=== PATIENT | female | born 1980 | race American Indian/Alaskan Native ===

== ENCOUNTER 2019-03-28 17:02 | Outpatient (CLI) | payer MEDICAID ==
[2019-03-28] MEDS ORDERED: LACTATED RINGERS 500 ML IV ONE (17:13)
[2019-03-28 18:04] LABS: Bacteria,Urine 1+ /HPF (Negative); Bilirubin,Urine NEG (Negative); Blood,Urine NEG (Negative); Color,Urine Yellow (Yellow); Mucus,Urine FEW /HPF; Protein,Urine <15 mg/dL mg/dL (Negative); Urobilinogen,Urine < 2.0 mg/dL (<2.0)
[2019-03-28 18:44] VITALS: BP 114/65
== END 2019-03-28 19:27 | disposition home or self-care (01) ==
LOC: TRG 17:02
PROVIDERS: ATTEND Obstetrics & Gynecology
DX: O47.03 False labor before 37 completed weeks of gestation, third trimester (principal); Z3A.35 35 weeks gestation of pregnancy
CPT/HCPCS: 81001

== ENCOUNTER 2019-04-23 00:31 | Inpatient (IN) | payer MEDICAID ==
[2019-04-23] MEDS ORDERED: LACTATED RINGERS 2,000 ML ONE (02:01)
[2019-04-23] MEDS ORDERED: PITOCin/NS 20 UNIT/1000ML DRIP 20,000 MILLIUNITS/1,000 ML BAG IV ONE (02:14)
--- NOTE | 2019-04-23 02:21 | History and Physical Report ---
History of Present Illness Date of examination: 04/23/19 (Labor, 8cms) Date of admission: 04/23/19 01:46 Chief complaint: Labor History of present illness: EDC Confirmation: 04/29/2019 Past History : 5 Term Births: 4 Premature Births: 0 Living Children: 4 Para: 4 Mult. Births: 0 Prev : 0 Prev. attempt? 0 Aborta: 0 Elect. Ab: 0 Spont. Ab: 0 Ectopics: 0 # 1 Delivery date: 02/13/2014 Weeks Gestation: 39 Delivery type: Vaginal Hours of labor: 10 Anesthesia type: epidural Delivery location: [facility] Sex: male weight: 6.81 Name: Alexandr # 2 Delivery date: 03/10/2015 Weeks Gestation: 41 Delivery type: Vaginal Anesthesia type: epidural Delivery location: [facility] Sex: male weight: 8.50 Name: JOHNSON # 3 Delivery date: 09/08/2016 Weeks Gestation: 40 Delivery type: Vaginal Anesthesia type: epidural Delivery location: [facility] Sex: female weight: 7.75 Comments: GBS+ Treated # 4 Delivery date: 10/31/2017 Weeks Gestation: 40 Delivery type: Vaginal Anesthesia type: none Delivery location: [facility] Sex: male weight: 8 Comments: precipitous delivery Past Medical History: Reviewed history from 03/26/2014 and no changes required: None Past Surgical History: Reviewed history from 03/16/2017 and no changes required: negative Past Medical History Abnormal PAP: negative MICHELE Exposure: negative Infertility: negative Uterine Anomaly: negative Uterine Surgery (not C/S): negative Other Gynecologic Problems: negative Social Hx: Patient is single Unemployed Smoking History: Patient has never smoked. Infection History Hx of STD: HPV HIV Risk Eval: low risk Hepatitis B Risk Eval: low risk Personal hx. of genital herpes: no Partner hx. of genital herpes: no Rash, Viral, or Febrile illness since last LMP? no Varicella/Chicken Pox Status: Previous Disease TB Risk: no Genetic History ADVANCED MATERNAL AGE Congenital Heart Defect: Mom: no Dad: no Santy Disease: Mom: no Dad: no Thalassemia Mom: no Dad: no Neural Tube Defect Mom: no Dad: no Down's Syndrome Mom: no Dad: no Napoleon-Sachs Mom: no Dad: no Sickle Cell Disease/Trait Mom: no Dad: no Hemophilia Mom: no Dad: no Muscular Dystrophy Mom: no Dad: no Cystic Fibrosis Mom: no Dad: no [place] Chorea Mom: no Dad: no Mental Retardation Mom: no Dad: no Fragile X Mom: no Dad: no Other Genetic/Chromosomal Disorder Mom: no Dad: no Child w/other defect Mom: no Dad: no Enviromental Exposures Xray Exposure: no Medication, drug, or alcohol use since LMP: no Chemical/Other Exposure: no Exposure to Cat Liter: no Occupational Exposure to Children: none Active Medications (reviewed today): RX 1 TABS ( VIT-FE FUMARATE-FA TABS) one po q day ZOFRAN ODT 8 MG ORAL TABLET DISINTEGRATING (ONDANSETRON) 1 po q12hrs prn RX 1 TABS ( VIT-FE FUMARATE-FA TABS) one po q day Current Allergies (reviewed today): * PENICILLIN (Critical) Past History Past Medical History: other (see HPI) Past Surgical History: other (see HPI) CIRCULATION MAN History: other (see HPI) Family/Genetic History: other (see HPI) - Obstetrical History Expected Date of Delivery: 04/29/19 Actual Gestation: 39 Week(s) 1 Day(s) : 5 Para: 4 Hx # Term Pregnancies: 4 Number of Pregnancies: 0 Spontaneous Abortions: 0 Induced : 0 Number of Living Children: 4 Medications and Allergies Allergies Allergy/AdvReac Type Severity Reaction Status Date / Time Penicillins AdvReac Severe Rash Verified 03/28/19 17:12 Home Medications Medication Instructions Recorded Confirmed Last Taken Type Vits96/Iron Fum/Folic 1 each PO QDAY 08/28/13 10/31/17 1 Day Ago History [ Tablet] ~10/30/17 Ferrous Sulfate [Feosol 325 MG tab] 325 mg PO BID #90 tablet 11/01/17 Unknown Rx Ibuprofen [Motrin 800 MG tab] 800 mg PO TID PRN #30 tablet 11/01/17 Unknown Rx Lidocain2.5%/Prilocai2.5% [Emla] 5 gm TP PRN #1 tube 11/01/17 Unknown Rx Review of Systems All systems: negative - Physical Exam Breasts: Positive: normal Cardiovascular: Regular rate Lungs: Positive: Clear to auscultation, Normal air movement Abdomen: Positive: normal appearance, soft Genitourinary (Female): Positive: normal external genitalia, normal perenium Vulva: both: normal Vagina: Positive: normal moisture Uterus: Positive: normal size Anus/Rectum: Positive: normal perianal skin Extremities: Positive: normal - Obstetrical FHR: category 1 Uterine Contraction Monitor Mode: External Cervical Dilatation: 8 Uterine Contraction Pattern: Regular Uterine Tone Measurement Phase: Contraction Uterine Contraction Intensity: Strong/Firm Results All other labs normal. Assessment and Plan 38y/o @ 39+1 weeks admitted in active labor 8cms. IVF open for pre- epidural bolus, admission orders in EMR. Anticipate . GBS neg - Patient Problems (1) 39 weeks gestation of Current Visit: Yes Status: Acute (2) Active labor at term Current Visit: Yes Status: Acute
[2019-04-23] MEDS ORDERED: BRETHINE SUB-Q PRN (02:22)
[2019-04-23] MEDS ORDERED: SUBLIMAZE IV PRN (02:22)
[2019-04-23] MEDS ORDERED: MINERAL OIL PO PRN (02:22)
[2019-04-23] MEDS ORDERED: XYLOCAINE 2% INFILTRATI ONE (02:22)
[2019-04-23 02:56] LABS: Hematocrit 35.5 % (30.3-42.9); Hemoglobin 11.9 gm/dl (10.1-14.3); Mean Corpuscular HGB Conc 34 % (30-34); Mean Corpuscular Volume 89 fl (79-97); Platelet Count 158 K/mm3 (140-440); Red Cell Distribution Width 14.3 % (13.2-15.2)
[2019-04-23] MEDS ORDERED: PITOCin/NS 20 UNIT/1000ML DRIP 20 UNITS/1,000 ML BAG IV SCH ×2 (03:00→05:21)
[2019-04-23] MEDS ORDERED: LACTATED RINGERS 1,000 ML IV SCH (03:00)
[2019-04-23] MEDS ORDERED: NARCAN 2 MG/2 ML IV PRN (03:43)
--- NOTE | 2019-04-23 03:43 | Anesthesia Consultation ---
Anesthesia Consult and Med Hx Date of service: 04/23/19 - Airway Anesthetic Teeth Evaluation: Chipped ROM Head & Neck: Adequate Mental/Hyoid Distance: Adequate Mallampati Class: Class II Intubation Access Assessment: Probably Good - Pulmonary Exam CTA: Yes - Cardiac Exam Cardiac Exam: RRR - Pre-Operative Health Status ASA Pre-Surgery Classification: ASA3 Proposed Anesthetic Plan: Epidural - Pulmonary Hx Asthma: No COPD: No Hx Pneumonia: No - Cardiovascular System Hx Hypertension: No - Central Nervous System Hx Seizures: No Hx Psychiatric Problems: No - Endocrine Hx Renal Disease: No Hx End Stage Renal Disease: No Hx Hypothyroidism: No Hx Hyperthyroidism: No - Hematic Hx Anemia: No Hx Sickle Cell Disease: No - Other Systems Hx Alcohol Use: No Hx Obesity: Yes (morbid)
[2019-04-23] MEDS ORDERED: fentaNYL-BUPIV 2 MCG/ML-0.125% 200 MCG/100 ML BAG EPIDURAL SCH (04:00)
--- NOTE | 2019-04-23 04:12 | Procedure Note ---
OB Delivery Note - Delivery Date of Delivery: 04/23/19 ( female) Stitch Bonding Machine Tender: LEEANNE ZHAO Estimated blood loss: 300cc - Vaginal Delivery presentation: vertex Delivery position: OA Intrapartum events: none Delivery induction: none Delivery monitor: external FHT, external uterine Route of delivery: Delivery placenta: spontaneous Delivery cord: 3 umbilical vessels Episiotomy: none Delivery laceration: none Anesthesia: epidural Delivery comments: female delivered over intact perineum, OA. placed skin to skin on mother's chest, 3 vessel cord clamped and cut after cessation of pulsation. Placenta del intact and complete. Pit to IVF. EBL 300. Apgars 8/9. mother and infant remain LDR stable. - Infant A at 1 minute: 8 at 5 minutes: 9 Gender: Female (8#4)
[2019-04-23] MEDS ORDERED: SODIUM CHLORIDE FLUSH SYRINGE 10 ML IV PRN (05:21)
[2019-04-23] MEDS ORDERED: TUCKS PAD TP PRN (05:21)
[2019-04-23] MEDS ORDERED: DULCOLAX PR PRN (05:21)
[2019-04-23] MEDS ORDERED: ZOFRAN IV PRN (05:21)
[2019-04-23] MEDS ORDERED: TYLENOL PO PRN (05:21)
[2019-04-23] MEDS ORDERED: LANSINOH TP PRN (05:21)
[2019-04-23] MEDS ORDERED: PHENERGAN PO PRN (05:21)
[2019-04-23] MEDS ORDERED: MILK OF MAGNESIA PO PRN (05:21)
[2019-04-23] MEDS ORDERED: BENADRYL PO PRN (05:21)
[2019-04-23] MEDS: IBUPROFEN PO SCH ×3 (05:34→18:18)
[2019-04-23] MEDS: PRENATAL VITAMIN PO SCH (11:42)
[2019-04-23 15:48] LABS: Hematocrit 35.9 % (30.3-42.9); Hemoglobin 11.9 gm/dl (10.1-14.3)
[2019-04-24] MEDS: IBUPROFEN PO SCH ×4 (00:05→23:07)
[2019-04-24] MEDS ORDERED: BOOSTRIX IM ONE (06:00)
--- NOTE | 2019-04-24 08:01 | Discharge Summary ---
Providers - Providers Date of Admission: 04/23/19 01:46 Date of discharge: 04/24/19 (desires d/c home tomorrow morning) Attending physician: EMA APPLE Primary care physician: EMA APPLE Hospitalization Reason for admission: Labor Condition: Good Pertinent studies: post delivery H&H 11.9/35.9 Procedures: Hospital course: uncomplicated and course Disposition: DC-01 TO HOME OR SELFCARE - Discharge Diagnoses (1) Spontaneous vaginal delivery Status: Acute Core Measure Documentation - Palliative Care Palliative Care/ Comfort Measures: Not Applicable - Core Measures Any of the following diagnoses?: none Exam - Constitutional Vitals: Temp Pulse Resp BP Pulse Ox 97.8 F 86 16 106/63 96 04/24/19 01:14 04/24/19 01:14 04/24/19 01:14 04/24/19 01:14 04/24/19 01:14 General appearance: Present: no acute distress, well-nourished - EENT Eyes: Present: PERRL ENT: hearing intact, clear oral mucosa - Neck Neck: Present: supple, normal ROM - Respiratory Respiratory effort: normal Respiratory: bilateral: CTA - Cardiovascular Heart Sounds: Present: S1 & S2. Absent: rub, click - Extremities Extremities: pulses symmetrical, No edema Peripheral Pulses: within normal limits - Abdominal General gastrointestinal: Present: soft, non-tender, non-distended, normal bowel sounds Female genitourinary: Present: normal - Integumentary Integumentary: Present: clear, warm, dry - Musculoskeletal Musculoskeletal: gait normal, strength equal bilaterally - Psychiatric Psychiatric: appropriate mood/affect, intact judgment & insight - Neurologic Neurologic: CNII-XII intact, moves all extremities - Additional findings Additional findings: fundus firm, lochia scant Plan Activity: no restrictions Diet: regular Follow up with: EMA APPLE MD [Primary Care Provider] - 7 Days (Congratulations! Please call [phone] to schedule your visitin 4 weeks. Call for any questions or concerns.) Prescriptions: Ibuprofen [Motrin 800 MG tab] 800 mg PO Q8HR PRN #30 tablet PRN Reason: Pain
[2019-04-24] MEDS: PRENATAL VITAMIN PO SCH (11:09)
[2019-04-25] MEDS: IBUPROFEN PO SCH (05:17)
[2019-04-25] MEDS: PRENATAL VITAMIN PO SCH (09:46)
[2019-04-25 11:29] VITALS: BP 117/71
== END 2019-04-25 11:20 | disposition home or self-care (01) | DRG 775 ==
LOC: TRG 00:31 → LD 01:46 → OB 07:45
PROVIDERS: ADMIT Obstetrics & Gynecology; ATTEND Obstetrics & Gynecology
PROC: 10E0XZZ Delivery of Products of Conception, External Approach (ICD-10-PCS; principal; 2019-04-23)
PROC: 3E0R3BZ Introduction of Anesthetic Agent into Spinal Canal, Percutaneous Approach (ICD-10-PCS; 2019-04-23)
PROC: 00HU33Z Insertion of Infusion Device into Spinal Canal, Percutaneous Approach (ICD-10-PCS; 2019-04-23)
DX: O99.214 Obesity complicating childbirth (principal); E66.9 Obesity, unspecified; Z3A.39 39 weeks gestation of pregnancy; Z37.0 Single live birth; Z88.0 Allergy status to penicillin; Z79.899 Other long term (current) drug therapy
CPT/HCPCS: 36415; 85014; 85018; 85027; 86592; 86850; 86900; 86901; 90471; 90715; G0378; A6250; J2590; J3010; J7120

== ENCOUNTER 2019-05-04 15:01 | Inpatient (IN) | payer MEDICAID ==
[2019-05-04] MEDS ORDERED: MILK OF MAGNESIA PO PRN (15:02)
[2019-05-04] MEDS ORDERED: TUCKS PAD TP PRN (15:02)
[2019-05-04] MEDS ORDERED: TYLENOL PO PRN (15:02)
[2019-05-04] MEDS ORDERED: BENADRYL PO PRN (15:02)
[2019-05-04] MEDS ORDERED: LANSINOH TP PRN (15:02)
[2019-05-04] MEDS ORDERED: DULCOLAX PR PRN (15:02)
[2019-05-04] MEDS ORDERED: MAGNESIUM SULFATE 4GM/100ML 4 GM/100 ML BAG IV ONE (15:02)
--- NOTE | 2019-05-04 15:14 | History and Physical Report ---
History of Present Illness Date of examination: 05/04/19 Chief complaint: direct admit for pre-e from the office History of present illness: day 11, seen in office for c/o swelling in feet and legs along with occasional FRIEDMAN's relieved with Tylenol. b/p in office 170/100. Delivery Date: 04/23/2019 Gestational Age: 39+1 weeks Labor Length: 4 hours Anesthesia: epidural Delivery Type: Vaginal Weight: 8.25 lbs Gender: female Location: [facility] Complications: none - 1 minute: 8 5 minutes: 9 Past History Past Medical History: no pertinent history Past Surgical History: no surgical history Social history: , lives with family. denies: smoking, alcohol abuse, prescription drug abuse, IV drug use - Obstetrical History : 5 Para: 5 Medications and Allergies Allergies Allergy/AdvReac Type Severity Reaction Status Date / Time Penicillins AdvReac Severe Rash Verified 03/28/19 17:12 Home Medications Medication Instructions Recorded Confirmed Last Taken Type Vits96/Iron Fum/Folic 1 each PO QDAY 08/28/13 04/24/19 1 Day Ago History [ Tablet] ~10/30/17 Ferrous Sulfate [Feosol 325 MG tab] 325 mg PO BID #90 tablet 11/01/17 04/24/19 Unknown Rx Ibuprofen [Motrin 800 MG tab] 800 mg PO TID PRN #30 tablet 11/01/17 04/24/19 Unknown Rx Lidocain2.5%/Prilocai2.5% [Emla] 5 gm TP PRN #1 tube 11/01/17 04/24/19 Unknown Rx Ibuprofen [Motrin 800 MG tab] 800 mg PO Q8HR PRN #30 tablet 04/24/19 Unknown Rx Active Meds: Active Medications Acetaminophen (Tylenol) 650 mg PO Q4H PRN PRN Reason: Pain MILD(1-3)/Fever >100.5/FRIEDMAN Bisacodyl (Dulcolax) 10 mg MS BID PRN PRN Reason: Constipation Diphenhydramine HCl (Benadryl) 25 mg PO Q6H PRN PRN Reason: Itching Magnesium Sulfate (Magnesium Sulfate 4gm/100ml) 4 gm in 100 mls @ 300 mls/hr IV ONCE ONE Stop: 05/04/19 15:21 Magnesium Sulfate (Magnesium Sulfate 40gm/1000ml) 40 gm in 1,000 mls @ 50 mls/hr IV DIRECT NERI Lactated Ringer's (Lactated Ringers) 1,000 mls @ 125 mls/hr IV DIRECT NERI Magnesium Hydroxide (Milk Of Magnesia) 30 ml PO HS PRN PRN Reason: Constipation Multi-Ingredient Ointment (Lansinoh) 1 applic TP PRN PRN PRN Reason: Sore Nipples Multivitamins/Iron/Calcium ( Vitamin) 1 each PO QDAY NERI Sodium Chloride (Sodium Chloride Flush Syringe 10 Ml) 10 ml IV PRN NR Witch [place]/Glycerin (Tucks Pad) 1 each TP PRN PRN PRN Reason: Hemorrhoid/cleansing/soothing Review of Systems All systems: negative Cardiovascular: leg edema Neurological: headaches - Physical Exam Breasts: Positive: normal, Cardiovascular: Regular rate Lungs: Positive: Clear to auscultation, Normal air movement Abdomen: Positive: normal appearance, soft Genitourinary (Female): Positive: normal external genitalia Vulva: both: normal Extremities: Positive: edema (2+ nonpitting edema BTK) Deep Tendon Reflex Grade: Normal +2 Results All other labs normal. Assessment and Plan 38 y/o 11 days w/o hx htn. c/o FRIEDMAN and edema in lower extremities. b/p in office was 140/90 and 170/100. pt was sent over for direct admission for mag sulfate therapy and b/p control. Dr. Fish consulted. Admission orders in EMR. - Patient Problems (1) Pre-eclampsia in period Current Visit: Yes Status: Acute
[2019-05-04] MEDS ORDERED: SODIUM CHLORIDE FLUSH SYRINGE 10 ML IV NR (16:00)
[2019-05-04] MEDS: LACTATED RINGERS 1,000 ML IV SCH (17:02)
[2019-05-04 17:10] LABS: Hematocrit 34.8 % (30.3-42.9); Hemoglobin 11.6 gm/dl (10.1-14.3); Mean Corpuscular HGB Conc 33 % (30-34); Mean Corpuscular Volume 90 fl (79-97); Platelet Count 223 K/mm3 (140-440); Red Blood Count 3.88 M/mm3 (3.65-5.03)
[2019-05-04] MEDS: MAGNESIUM SULFATE 40GM/1000ML 40 GM/1,000 ML BAG IV SCH (17:32)
[2019-05-04 17:33] LABS: Alanine Aminotransferase 31 units/L (7-56)
[2019-05-04 19:53] LABS: Bacteria,Urine 1+ /HPF (Negative); Bilirubin,Urine NEG (Negative); Blood,Urine SM (Negative); Color,Urine Straw (Yellow); Protein,Urine <15 mg/dL mg/dL (Negative); Urobilinogen,Urine < 2.0 mg/dL (<2.0)
[2019-05-05] MEDS: LACTATED RINGERS 1,000 ML IV SCH (01:25)
--- NOTE | 2019-05-05 08:59 | Progress Note ---
Assessment and Plan - Patient Problems (1) Pre-eclampsia in period Current Visit: Yes Status: Acute Plan to address problem: Blood pressures stable, UO 1700mL at 837a, clear yellow. Continue observation, will hold BP meds at this time D/C MgSO4 at 1700, possibly D/C home this pm if BP's <160/100 and asymptomatic Questions encouraged and answered, she voiced understanding and agrees with plan of care. Subjective - Subjective Date of service: 05/05/19 Principal diagnosis: PPD#12 PPGHTN/FRIEDMAN Interval history: Feels better today however still with FRIEDMAN pain score 6, she denies visual changes or RUQ pain Patient reports: appetite normal Objective - Vital Signs Latest vital signs: Vital Signs Temp Pulse Pulse Resp BP BP Pulse Ox 05/05/19 08:51 72 99 05/05/19 08:46 69 98 05/05/19 08:35 68 140/78 05/05/19 08:16 73 163/96 05/05/19 07:48 67 132/65 05/05/19 07:30 98.8 F 16 05/05/19 05:48 66 143/80 05/05/19 04:48 72 157/86 05/05/19 04:00 97.8 F 05/05/19 03:59 71 158/92 05/05/19 03:49 66 164/81 05/05/19 02:48 67 143/74 05/05/19 01:48 63 147/82 05/05/19 00:48 68 137/78 05/04/19 23:48 65 149/82 05/04/19 22:49 59 L 158/87 05/04/19 21:48 60 140/79 05/04/19 20:48 59 L 135/78 05/04/19 20:00 97.5 F L 76 18 99 05/04/19 19:35 60 144/63 05/04/19 19:05 55 L 141/64 05/04/19 18:35 58 L 140/73 05/04/19 18:02 97.7 F 61 16 143/65 05/04/19 17:57 61 143/65 05/04/19 17:42 56 L 138/64 05/04/19 17:27 58 L 135/73 05/04/19 17:13 67 156/72 05/04/19 16:57 57 L 138/73 05/04/19 16:28 61 130/66 05/04/19 16:12 55 L 157/74 Intake and Output 05/04/19 05/05/19 05/05/19 22:59 06:59 14:59 Intake Total 3800 Output Total 500 3300 1200 Balance -500 500 -1200 Intake: IV 1000 Lactated Ringers 1,000 ml 1000 @ 125 mls/hr IV DIRECT NERI Rx#:[id number] Oral 2800 Output: Urine 500 3300 1200 Indwelling Catheter 500 3300 1200 Other: Total, Intake Amount 800 Total, Output Amount 300 1200 1200 Voiding Method Indwelling Catheter Weight 122.47 kg - Exam Breasts: Present: normal Cardiovascular: Present: Regular rate Lungs: Present: Clear to auscultation, Normal air movement Abdomen: Present: normal appearance, soft. Absent: tenderness Extremities: Present: normal. Absent: edema Deep Tendon Reflex Grade: Normal +2 - Labs Labs: Abnormal lab results 05/04/19 05/04/19 05/05/19 Range/Units 16:27 21:40 04:54 Uric Acid 8.0 H (3.5-7.6) mg/dL Magnesium 4.40 H 5.40 H (1.7-2.3) mg/dL Lactate Dehydrogenase 341 H (91-180) units/L
[2019-05-05] MEDS ORDERED: TYLENOL PO ONE (09:00)
[2019-05-05] MEDS ORDERED: PRENATAL VITAMIN PO SCH (10:00)
[2019-05-05] MEDS: MAGNESIUM SULFATE 40GM/1000ML 40 GM/1,000 ML BAG IV SCH (13:32)
[2019-05-05 18:39] VITALS: BP 141/69
--- NOTE | 2019-05-06 09:47 | Discharge Summary ---
Providers - Providers Date of Admission: 05/04/19 16:02 Date of discharge: 05/05/19 Attending physician: PASHA DAY Primary care physician: PASHA DAY Hospitalization Condition: Poor Disposition: DC/[place]-06 HOME UNDER HOME HLTH - Discharge Diagnoses (1) Pre-eclampsia in period Status: Acute Comment: stable Core Measure Documentation - Palliative Care Palliative Care/ Comfort Measures: Not Applicable - Core Measures Any of the following diagnoses?: none Exam - Constitutional Vitals: Temp Pulse Resp BP Pulse Ox 98.8 F 70 16 141/69 97 05/05/19 07:30 05/05/19 19:36 05/05/19 07:30 05/05/19 18:38 05/05/19 19:36 Plan Weight Bearing Status: Full Weight Bearing Follow up with: LEEANNE ZHAO CNM [Advanced Practice Nurse] - 05/08/19 3:30 pm ([facility]) Forms: [facility] Discharge Summary
== END 2019-05-05 20:30 | disposition home health service (06) | DRG 776 ==
LOC: 3A 15:01 → UNDOADMIN 15:01 → LD 16:02
PROVIDERS: ADMIT Obstetrics & Gynecology; ATTEND Obstetrics & Gynecology
DX: O14.95 Unspecified pre-eclampsia, complicating the puerperium (principal); Z88.0 Allergy status to penicillin
CPT/HCPCS: 36415; 81001; 82565; 83615; 83735; 84450; 84460; 84550; 85027; G0378; J3475; J7120